=== PATIENT | female | born 1965 | race Caucasian/White ===

== ENCOUNTER 2023-07-14 23:14 | Emergency (ER) | payer OTHER ==
[~2023-07-14] VITALS: Ht 157.5 cm; Wt 66.0 kg
[2023-07-14] MEDS ORDERED: SULF1TAB41 PO (23:28)
[2023-07-14] MEDS ORDERED: CEPHALEXIN MONOHYDRATE 500 MG CAPSULE PO ONE (23:45)
[2023-07-14] MEDS ORDERED: SULFAMETHOX/TRIMETH DS 800-160 MG/TABLET PO ONE (23:45)
[2023-07-14] MEDS ORDERED: CEPH-558 PO (23:57)
[2023-07-14] MEDS ORDERED: BACTDSB PO (23:57)
[2023-07-15] VITALS: BP 132/59; PULSE 89; RESP 18; TEMP 97.3
== END 2023-07-15 03:44 | disposition home or self-care (01) ==
LOC: EMS 23:14
DX: S30.860A Insect bite (nonvenomous) of lower back and pelvis, initial encounter (principal); W57.XXXA Bitten or stung by nonvenomous insect and other nonvenomous arthropods, initial encounter; Y93.89 Activity, other specified; Y92.89 Other specified places as the place of occurrence of the external cause; Y99.8 Other external cause status
CPT/HCPCS: 99283

== ENCOUNTER 2023-08-21 02:05 | Emergency (ER) | payer OTHER ==
[~2023-08-21] VITALS: Ht 172.7 cm; Wt 68.2 kg
[~2023-08-21 02:05] MED LIST: BACTDSB PO; CEPH-558 PO; SULF1TAB41 PO
[2023-08-21 03:11] VITALS: BP 133/78; PULSE 65; RESP 17; TEMP 98.3
== END 2023-08-21 04:00 | disposition home or self-care (01) ==
LOC: EMS 02:06
DX: L03.317 Cellulitis of buttock (principal); F31.9 Bipolar disorder, unspecified; F17.210 Nicotine dependence, cigarettes, uncomplicated
CPT/HCPCS: 99281; Z7502

== ENCOUNTER 2024-02-07 13:30 | Emergency (ER) | payer OTHER ==
[~2024-02-07] VITALS: Ht 160 cm; Wt 68.2 kg
[2024-02-07 14:52] VITALS: BP 124/85; PULSE 88; RESP 18; TEMP 98.7
[2024-02-07] MEDS ORDERED: SULF-261 PO (15:12)
[2024-02-07] MEDS ORDERED: IBUP-1492 PO (15:12)
[2024-02-07] MEDS ORDERED: CEPH-558 PO (15:12)
== END 2024-02-07 16:56 | disposition home or self-care (01) ==
LOC: EMS 13:30
DX: L02.01 Cutaneous abscess of face (principal); F31.9 Bipolar disorder, unspecified; F17.210 Nicotine dependence, cigarettes, uncomplicated
CPT/HCPCS: 99283; Z7502

== ENCOUNTER 2024-06-16 22:01 | Emergency (ER) | payer OTHER ==
[~2024-06-16] VITALS: Ht 157.5 cm; Wt 68.2 kg
[~2024-06-16 22:01] MED LIST changes: -BACTDSB PO; +IBUP-1492 PO; +SULF-261 PO; -SULF1TAB41 PO
[2024-06-16 22:28] VITALS: TEMP 98.1
[2024-06-16 22:45] VITALS: BP 132/79; PULSE 87; RESP 18; O2SAT 94
[2024-06-16] MEDS: ACETAMINOPHEN 500 MG TABLET PO ONE (23:04)
[2024-06-16] MEDS: KETOROLAC TROMETHAMINE 30 MG/ML VIAL IM ONE (23:04)
[2024-06-16 23:33] LABS: APPEARANCE,URINE CLEAR (CLEAR); BILIRUBIN,URINE NEGATIVE (NEGATIVE); COLOR,URINE YELLOW (YELLOW); GLUCOSE, URINE (UA) NEGATIVE (NEGATIVE); KETONES,URINE NEGATIVE (NEGATIVE); LEUKOCYTE ESTERASE ,URINE TRACE (NEGATIVE); NITRATE,URINE NEGATIVE (NEGATIVE); OCCULT BLOOD,URINE NEGATIVE (NEGATIVE); PH,URINE 5.5 (5.0-8.0); PROTEIN,URINE NEGATIVE (NEGATIVE); SPECIFIC GRAVITIY, URINE 1.029 (1.003-1.030); UROBILINOGEN,URINE <=1.0 mg/dL (<=1.0)
[2024-06-16 23:38] LABS: BACTERIA,URINE None Seen /HPF (None Seen); RBC,URINE None Seen /HPF (0-2); SQUAMOUS EPITHELIAL CELL,UR Few /LPF (None Seen); WBC,URINE 0-2 /HPF (0-5)
[2024-06-16] MEDS ORDERED: ACET-3385 PO (23:45)
[2024-06-16] MEDS ORDERED: IBUP-1492 PO (23:45)
== END 2024-06-16 23:58 | disposition home or self-care (01) ==
LOC: EMS 22:01
DX: S46.211A Strain of muscle, fascia and tendon of other parts of biceps, right arm, initial encounter (principal); M54.50 Low back pain, unspecified; F31.9 Bipolar disorder, unspecified; F17.210 Nicotine dependence, cigarettes, uncomplicated; F12.90 Cannabis use, unspecified, uncomplicated; Z98.51 Tubal ligation status; X58.XXXA Exposure to other specified factors, initial encounter; Y93.89 Activity, other specified; Y92.89 Other specified places as the place of occurrence of the external cause; Y99.8 Other external cause status
CPT/HCPCS: 99283; 81001; 96372; J1885

== ENCOUNTER 2024-07-01 17:21 | Emergency (ER) | payer OTHER ==
[~2024-07-01] VITALS: Ht 165.1 cm; Wt 91.0 kg
[~2024-07-01 17:21] MED LIST changes: +ACET-3385 PO
[2024-07-01 20:33] LABS: BASOPHILS % (AUTO) 0.5 % (0.0-2.0); HEMATOCRIT 39.5 % (36-46); HEMOGLOBIN 13.3 g/dL (12.0-16.0); LYMPHOCYTES # (AUTO) 2.6 K/uL (1.0-4.8); LYMPHOCYTES % (AUTO) 36.2 % (22.0-44.0); MEAN CORPUSCULAR HEMOGLOBIN 32.5 pg (26.0-34.0); MEAN CORPUSCULAR HGB CONC 33.6 G/dL (31.0-37.0); MEAN CORPUSCULAR VOLUME 97 fL (80-100); MONOCYTES # (AUTO) 0.9 K/uL (0.1-1.0); MONOCYTES % (AUTO) 13.2 % (2.0-9.0); NEUTROPHILS % (AUTO) 43.1 % (40.0-70.0); PLATELET COUNT (AUTO) 268 K/uL (150-450); RED BLOOD CELL COUNT(AUTO) 4.08 MIL/uL (4.00-5.20); RED CELL DISTRIBUTION WIDTH 14.2 % (11.5-14.5); WHITE BLOOD COUNT (AUTO) 7.1 K/uL (4.5-11.0)
[2024-07-01 20:42] LABS: ANION GAP 7 mmol/L (8-16); CARBON DIOXIDE 30 mmol/L (22-29); CHLORIDE 104 mmol/L (98-107); CREATININE 0.95 mg/dL (0.60-1.30); GLOMERULAR FILTR. RATE CALC > 60 mL/min (>60); GLUCOSE,RANDOM 95 mg/dL (70-110); POTASSIUM 4.3 mmol/L (3.5-5.1); SODIUM SERUM 140 mmol/L (136-145); UREA NITROGEN, BLOOD 31 mg/dL (7-18)
[2024-07-01] MEDS ORDERED: MOXI3DRO25 OU (21:24)
[2024-07-01 21:48] VITALS: BP 138/84; PULSE 99; RESP 16; TEMP 98.3; O2SAT 98
== END 2024-07-01 22:14 | disposition home or self-care (01) ==
LOC: EMS 17:21
DX: K62.5 Hemorrhage of anus and rectum (principal); H10.9 Unspecified conjunctivitis; F31.9 Bipolar disorder, unspecified; F12.90 Cannabis use, unspecified, uncomplicated; F17.210 Nicotine dependence, cigarettes, uncomplicated; Z98.51 Tubal ligation status
CPT/HCPCS: 74018; 80048; 85025; 99284; 36415-L1; 36415-TC

== ENCOUNTER 2024-10-07 20:43 | Emergency (ER) | payer OTHER ==
[~2024-10-07] VITALS: Ht 160 cm; Wt 72.7 kg
[~2024-10-07 20:43] MED LIST changes: +MOXI3DRO25 OU
[2024-10-07 21:33] LABS: BASOPHILS % (AUTO) 0.8 % (0.0-2.0); EOSINOPHILS % (AUTO) 6.5 % (1.0-6.0); HEMATOCRIT 40.6 % (36-46); HEMOGLOBIN 13.6 g/dL (12.0-16.0); LYMPHOCYTES % (AUTO) 27.7 % (22.0-44.0); MEAN CORPUSCULAR HEMOGLOBIN 32.7 pg (26.0-34.0); MEAN CORPUSCULAR HGB CONC 33.4 G/dL (31.0-37.0); MEAN CORPUSCULAR VOLUME 98 fL (80-100); MONOCYTES # (AUTO) 0.8 K/uL (0.1-1.0); MONOCYTES % (AUTO) 10.9 % (2.0-9.0); NEUTROPHILS % (AUTO) 54.1 % (40.0-70.0); PLATELET COUNT (AUTO) 226 K/uL (150-450); RED BLOOD CELL COUNT(AUTO) 4.15 MIL/uL (4.00-5.20); RED CELL DISTRIBUTION WIDTH 14.4 % (11.5-14.5); WHITE BLOOD COUNT (AUTO) 7.3 K/uL (4.5-11.0)
[2024-10-07 21:41] LABS: ANION GAP 7 mmol/L (8-16); CALCIUM, TOTAL 8.5 mg/dL (8.8-10.5); CARBON DIOXIDE 28 mmol/L (22-29); CHLORIDE 105 mmol/L (98-107); CREATININE 0.86 mg/dL (0.60-1.30); GLOMERULAR FILTR. RATE CALC > 60 mL/min (>60); GLUCOSE,RANDOM 114 mg/dL (70-110); SODIUM SERUM 140 mmol/L (136-145); UREA NITROGEN, BLOOD 15 mg/dL (7-18)
[2024-10-07] MEDS: SODIUM PHOSPHATE,MONO-DIBASIC 133 ML ENEMA PR ONE (23:55)
[2024-10-07] MEDS: SODIUM CHLORIDE 0.9% 1,000 ML IV ONE (23:55)
[2024-10-08] MEDS ORDERED: POLY17PO62 PO (00:29)
[2024-10-08] MEDS: MAGNESIUM CITRATE [LEMON] 300 ML ORAL SOLUTION PO ONE (01:22)
[2024-10-08] MEDS: TraMADol HCL 50 MG TABLET PO ONE (01:30)
[2024-10-08 01:36] VITALS: BP 135/85; PULSE 70; RESP 18; TEMP 97.3; O2SAT 97
== END 2024-10-08 02:03 | disposition home or self-care (01) ==
LOC: EMS 20:43
DX: K59.00 Constipation, unspecified (principal); K62.89 Other specified diseases of anus and rectum; F31.9 Bipolar disorder, unspecified; F12.90 Cannabis use, unspecified, uncomplicated; F17.210 Nicotine dependence, cigarettes, uncomplicated; Z98.51 Tubal ligation status
CPT/HCPCS: 99284; 96360; 80048; 85025; 36415; 74018; J7030